=== PATIENT | male | born 1960 | race Caucasian/White ===

== ENCOUNTER → 2020-07-25 | Day surgery (SDC) | payer OTHER ==
[2020-07-23 13:44] LABS: COVID AG,FIA SOURCE NASOPHARYNGEAL
[~2020-07-25] MED LIST: ALBUTEROL SULFATE 2.5 MG/0.5 ML NEB SOLUTION NEB ONE; BENZOCAINE 20% 50 MCG/SPRAY 57 GM TP ONE; FentaNYL CITRATE-PF 100 MCG/2 ML VIAL ONE; LIDOCAINE 2% 30 ML JELLY TP ONE; MIDAZOLAM HCL 2 MG/2 ML VIAL ONE; MethylPREDNISolone SOD SUCC 125 MG/2 ML VIAL IVP ONE; MethylPREDNISolone SOD SUCC 125 MG/2 ML VIAL ONE; OXYGEN THERAPY IH SCH; SODIUM CHLORIDE 0.9% 1,000 ML IV ONE; SODIUM CHLORIDE 0.9% 1,000 ML ONE
== END | disposition home or self-care (01) ==
LOC: SURGERY 06:26 → EDBD 10:00
PROVIDERS: ATTEND Internal Medicine Critical Care Medicine
DX: J38.4 Edema of larynx (principal); B37.0 Candidal stomatitis; Z95.4 Presence of other heart-valve replacement; E78.00 Pure hypercholesterolemia, unspecified; Z79.82 Long term (current) use of aspirin; Z79.899 Other long term (current) drug therapy
CPT/HCPCS: 31623; 31624; 71045; 87015; 87070; 87101; 87206; 87220; 87426; 88108; 88312; 93005; C9803; J2250; J2930; J3010; J7030; J7613